=== PATIENT | female | born 1950 ===

== ENCOUNTER 2022-08-17 10:15 | Outpatient (RCR) | payer MEDICARE, OTHER, SELFPAY ==
--- NOTE | 2022-07-01 13:42 | PTOPEVAL1 ---
Assessment and note entered by Padmaja Alvarado, PT Evaluation Information Assessment Status Evaluation Diagnosis pain in right hip Subjective Information Has had pain multiple years, comes and goes with worsening symptoms but is never gone. It gets achy when it's time to get up in the morning. Lately the above and down the side of the leg and into the groin has been more painful. Like to walk for 3-5x weekly, usually 3 miles. Was doing yoga, but is watching [employer] 3 days weekly . Also noted yoga was actually more bothersome. Getting up and down from the floor is challenging and carrying him bothers upper back. Reported Pain Level Pain Score 4: Self Report Assessment PT Clinical Summary Pt presents w/ c/o chronic right hip pain that will increase and decrease at times but is never gone completely. Pain is most when first waking up in the morning, pt has difficult getting up and down from the floor with her grandchild, and is unable to perform some fitness activities due to pain. Evaluation shows pelvic alignment deficit, ( +) tone and tenderness multiple muscles, decreased passive ROM right hip, and decreased lumbopelvic core strength. Pt will benefit from physical therapy to address deficits, improve pain, and return to function higher functional level with less pain. Plan of Care Interventions Electrical Stimulation,Hot Pack/Cold Pack,Manual Therapy,Neuro Re-education,Patient/Caregiver Educati,Prosthetic Training,Therapeutic Activities ,Therapeutic Exercise,Ultrasound PT Services Indicated Yes Treatment Frequency and 2x weekly x 4 weeks Duration These treatments will address the objective and functional deficits as defined above. The patient will be advanced safely and appropriately in order for the patient to progress towards his/her prior level of function. Additional exercises will be introduced and as well as a comprehensive home exercise program upon discharge, if needed, ?to ensure carryover of functional gains achieved in the clinic. This treatment plan has been reviewed and agreement upon by the patient.
--- NOTE | 2022-08-17 10:58 | PTOPPROG ---
Assessment and note entered by Padmaja Alvarado, PT Assessment Status Progress Report Diagnosis pain in right hip Subjective Information Pt reports was really sore after last session, is the same kind of pain as previously but it didn't last as long. States hasn't noticed the pain as much lately. 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 Reports doesn't noticed anything in her right hip in the morning getting up now. Heel lift is going ok, but notes is only wearing the lift in her tennis shoes. Assessment PT Clinical Summary Pt reports feeling 75% improved overall. Cont to report soreness and pinching with increased level of activity and difficulty of activity however reports highest pain level recently at a 1 /10. States doesn't notice her discomfort as she used too either. Pt reports she has not been consistent in her exercises or her heel lift, was encouraged to continue her home program. Pt as also educated and is being provided the option to return for one final visit to assess her progress after vacation. Pt case will remain open for 30 days to allow her time to try her program independently and return if necessary. Otherwise pt will be discharged if she does not require therapy services in that time. Plan of Care Interventions Electrical Stimulation,Hot Pack/Cold Pack,Manual Therapy,Neuro Re-education,Patient/Caregiver Educati,Prosthetic Training,Therapeutic Activities ,Therapeutic Exercise,Ultrasound PT Services Indicated Yes Treatment Frequency and 4 visits as needed in the next 30 days Duration These treatments will address the objective and functional deficits as defined above. The patient will be advanced safely and appropriately in order for the patient to progress towards his/her prior level of function. Additional exercises will be introduced and as well as a comprehensive home exercise program upon discharge, if needed, ?to ensure carryover of functional gains achieved in the clinic. This treatment plan has been reviewed and agreement upon by the patient.
== END 2022-09-29 23:59 | disposition home or self-care (01) ==
LOC: ANHHIPT 10:15
PROVIDERS: PCP Physician Assistant Medical; Visit Provider Physician Assistant Medical
DX: M25.551 Pain in right hip (principal)
CPT/HCPCS: 97014; 97110; 97112; 97140; 97161; 97530; G0283